=== PATIENT | male | born 1960 | race Caucasian/White ===

== ENCOUNTER 2020-11-05 11:54 | Day surgery (SDC) | payer OTHER ==
[~2020-11-05] VITALS: Ht 172.7 cm; Wt 71.1 kg
[2020-11-05] MEDS ORDERED: ASPI81CH (12:49)
--- NOTE | 2020-11-05 13:01 | NUR ---
11/05/20 1301 Judit Huber 1 TRY RIGHT HAND NO FLASH
--- NOTE | 2020-11-05 16:31 | NUR ---
11/05/20 1631 Shani Gomez WHILE CONNECTING EKG LEADS, RN OBSERVED A RASH ON PATIENT'S ABDOMEN, UPPER CHEST, AND CONTINUING ON TO MID BACK. PATIENT DENIED ANY DISCOMFORT, ITCH OR KNOWLEDGE OF RASH. PT DENIES ANY DRUG ALLERGIES. NOTIFIED AND ORDERED 25MG BENADRYL IVP & 20MG PEPCID IVP. PT TOLERATED WELL, NO ISSUES OR COMPLICATIONS. RASH STILL PRESENT POST-PROCEDURE. PT CONTINUES TO DENY DISCOMFORT. OKAY TO DISCHARGE PER
== END 2020-11-05 14:47 | disposition home or self-care (01) ==
LOC: ORSCSDS 11:54
PROVIDERS: Internal Medicine Gastroenterology
PROC: 0DJD8ZZ Inspection of Lower Intestinal Tract, Via Natural or Artificial Opening Endoscopic (ICD-10-PCS; principal; 2020-11-05 13:30)
DX: Z12.11 Encounter for screening for malignant neoplasm of colon (principal); K64.8 Other hemorrhoids; K57.30 Diverticulosis of large intestine without perforation or abscess without bleeding; Z79.82 Long term (current) use of aspirin; Z79.899 Other long term (current) drug therapy
CPT/HCPCS: J1200; J2704; J7120